=== PATIENT | female | born 1990 | race African-American/Black ===

== ENCOUNTER 2024-04-22 22:03 | Emergency (ER) | payer OTHER ==
[2024-04-22 22:14] VITALS: PULSE 71
--- NOTE | 2024-04-22 22:37 | ED ---
Fall HPI - General Chief Complaint: Fall Stated Complaint: Fall Time Seen by Provider: 04/22/24 22:08 Source: patient, RN notes reviewed Mode of arrival: EMS - History of Present Illness Initial Comments: Patient is a 33 year old female with a past medical history of alcohol abuse presenting to the ED for a fall. She states she was unable to see where her bed was, and was feeling around, and then she hit her head and knee. She states she did not lose conciousness. She states that she has a headache on the left where she hit her head and says it feels like "a heart beat". She states that she is also having double vision. She denies any numbness, tingling, weakness in extremities. She states she had fallen in the past when she was 18 years old. She denies any neck or back pain. Review of Systems ROS Statement: Those systems with pertinent positive or pertinent negative responses have been documented in the HPI. ROS Other: All systems not noted in ROS Statement are negative. Past Medical History Additional Past Medical History / Comment(s): Pancreatitis, Anxiety, Anemia History of Any Multi-Drug Resistant Organisms: None Reported Past Surgical History: No Surgical Hx Reported Past Psychological History: Anxiety Smoking Status: Never smoker Past Alcohol Use History: Abuse, Daily Past Drug Use History: None Reported General Exam Limitations: no limitations General appearance: appears intoxicated, obtunded Head exam: Absent: atraumatic (tenderness on palpation) Eye exam: Present: normal appearance, PERRL, EOMI ENT exam: Present: normal exam, normal oropharynx, mucous membranes moist Neck exam: Absent: normal inspection (unable to perform, in C collar) Respiratory exam: Present: normal lung sounds bilaterally. Absent: respiratory distress, wheezes, rales, rhonchi, stridor Cardiovascular Exam: Present: regular rate, normal rhythm, normal heart sounds. Absent: systolic murmur, diastolic murmur, rubs, gallop, clicks GI/Abdominal exam: Present: soft, normal bowel sounds. Absent: distended, tenderness, guarding, rebound, rigid Neurological exam: Present: oriented X3, CN II-XII intact Skin exam: Present: warm, dry, intact, normal color. Absent: rash Course Vital Signs 04/22/24 04/23/24 22:04 00:30 Temperature 98.4 F 98.2 F Pulse Rate 71 71 Respiratory 16 18 Rate Blood Pressure 143/96 138/79 O2 Sat by Pulse 99 97 Oximetry Medical Decision Making - Medical Decision Making Was pt. sent in by a medical professional or institution ([facility]add[facility], SALES AND SERVICE CONSULTANT, urgent care, hospital, or jail...) When possible be specific @ -[facility] Did you speak to anyone other than the patient for history (EMS, parent, family, police, friend...)? What history was obtained from this source @ -No Did you review nursing and triage notes (agree or disagree)? Why? @ -I reviewed and agree with nursing and triage notes Were old charts reviewed (outside hosp., previous admission, EMS record, old EKG , old radiological studies, urgent care reports/EKG's, jail records)? Report findings @ -No old charts were reviewed Differential Diagnosis (chest pain, altered mental status, abdominal pain women, abdominal pain men, vaginal bleeding, weakness, fever, dyspnea, syncope, headache, dizziness, GI bleed, back pain, seizure, CVA, palpatations, mental health, musculoskeletal)? @ -Closed head injury, scalp contusion, skull fracture, intracranial hemorrhage EKG interpreted by me (3pts min.). @ -None X-rays interpreted by me (1pt min.). @ -None done CT interpreted by me (1pt min.). @ -CT brain, C-spine showing no acute intracranial hemorrhage, mass effect or cervical fracture U/S interpreted by me (1pt. min.). @ -None done What testing was considered but not performed or refused? (CT, X-rays, U/S, labs)? Why? @ -None What meds were considered but not given or refused? Why? @ -None Did you discuss the management of the patient with other professionals (professionals i.e. [facility]add[facility], SALES AND SERVICE CONSULTANT, lab, RT, psych nurse, social economist, instructor traffic safety, teacher, loans officer, rehabilitation caseworker)? Give summary @ -No Was smoking cessation discussed for >3mins.? @ -No Was critical care preformed (if so, how long)? @ -No Were there social determinants of health that impacted care today? How? (Homelessness, low income, unemployed, alcoholism, drug addiction, transportation, low edu. Level, literacy, decrease access to med. care, group home, rehab)? @ -No Was there de-escalation of care discussed even if they declined (Discuss DNR or withdrawal of care, Hospice)? DNR status @ -No What co-morbidities impacted this encounter? (DM, HTN, Smoking, COPD, CAD, Cancer, CVA, ARF, Chemo, Hep., AIDS, mental health diagnosis, sleep apnea, morbid obesity)? @ -None Was patient admitted / discharged? Hospital course, mention meds given and route, prescriptions, significant lab abnormalities, going to OR and other pertinent info. @ -Discharge patient presented for [facility] patient had significant head injury, change in behavior, severe mechanism of injury CT was obtained patient discharged back to [facility] in stable condition Undiagnosed new problem with uncertain prognosis? @ -No Drug Therapy requiring intensive monitoring for toxicity (Heparin, Nitro, Insulin, Cardizem)? @ -No Were any procedures done? @ -No Diagnosis/symptom? @ -Close head injury Acute, or Chronic, or Acute on Chronic? @ -Acute Uncomplicated (without systemic symptoms) or Complicated (systemic symptoms)? @ -Uncomplicated Side effects of treatment? @ -No Exacerbation, Progression, or Severe Exacerbation? @ -No Poses a threat to life or bodily function? How? (Chest pain, USA, MA, pneumonia, PE, COPD, DKA, ARF, appy, cholecystitis, CVA, Diverticulitis, Homicidal, Suicidal, threat to staff... and all critical care pts) @ -No Disposition Clinical Impression: Fall, Closed head injury Disposition: HOME SELF-CARE Condition: Stable Instructions (If sedation given, give patient instructions): Head Injury (ED) Additional Instructions: Please return to the Emergency Department if symptoms worsen or any other concerns. Is patient prescribed a controlled substance at d/c from ED?: No Referrals: None,Stated [Primary Care Provider] - 1-2 days Time of Disposition: 00:15
--- NOTE | 2024-04-22 23:45 | CT ---
EXAM: CT Head Without Intravenous Contrast CLINICAL HISTORY: ITS.REASON CT Reason: fall TECHNIQUE: Axial computed tomography images of the head/brain without intravenous contrast. CTDI is 45.2 mGy and DLP is 1045 mGy-cm. This CT exam was performed using one or more of the following dose reduction techniques: automated exposure control, adjustment of the mA and/or kV according to patient size, and/or use of iterative reconstruction technique. COMPARISON: No relevant prior studies available. FINDINGS: Brain: Unremarkable. No hemorrhage. No significant white matter disease. No edema. Ventricles: Unremarkable. No ventriculomegaly. Bones/joints: Unremarkable. No acute fracture. Soft tissues: Unremarkable. Sinuses: Unremarkable as visualized. No acute sinusitis. Mastoid air cells: Unremarkable as visualized. No mastoid effusion. IMPRESSION: Normal head/brain CT. EXAM: CT Cervical Spine Without Intravenous Contrast CLINICAL HISTORY: ITS.REASON CT Reason: fall TECHNIQUE: Axial computed tomography images of the cervical spine without intravenous contrast. CTDI is 8.5 mGy and DLP is 249.1 mGy-cm. This CT exam was performed using one or more of the following dose reduction techniques: automated exposure control, adjustment of the mA and/or kV according to patient size, and/or use of iterative reconstruction technique. COMPARISON: No relevant prior studies available. FINDINGS: Vertebrae: Unremarkable. No acute fracture. Discs/spinal canal/neural foramina: No acute findings. No spinal canal stenosis. Soft tissues: Unremarkable. IMPRESSION: Normal cervical spine CT.
[2024-04-23] MEDS: IBUPROFEN 400 MG TAB PO STA (00:27)
[2024-04-23 00:32] VITALS: BP 138/79; RESP 18; TEMP 98.2
== END 2024-04-23 00:32 | disposition home or self-care (01) ==
LOC: EC 22:03
DX: S09.90XA Unspecified injury of head, initial encounter (principal); W01.0XXA Fall on same level from slipping, tripping and stumbling without subsequent striking against object, initial encounter
CPT/HCPCS: 70450; 72125; 99284

== ENCOUNTER 2024-04-23 06:27 | Observation (INO) | payer OTHER ==
--- NOTE | 2024-04-23 07:02 | ED ---
General Adult HPI - General Chief complaint: Psychiatric Symptoms Stated complaint: withdrawl Time Seen by Provider: 04/23/24 06:38 Source: patient, RN notes reviewed Mode of arrival: EMS Limitations: no limitations - History of Present Illness Initial comments: This is a 33-year-old female who presents to the emergency department for hallucinations. She checked into [facility] on 04/21/2024 for alcoholism. The patient states that her last drink was 2 to 3 weeks ago, however per [facility] documentation it was the day she checked in (04/21). She was evaluated here yesterday for a fall after hitting her head. She had imaging done that was negative and she was discharged back to [facility]. Per [facility], this evening she started to experience visual hallucinations. She saw a mouse peeking out of her trash can and a bug looking like either a butterfly or a praying mantis in her room. She told her roommate and they did not see anythi ng. They subsequently sent her here for further evaluation of hallucinations. Patient states that she is not experiencing any hallucinations, she just saw a bug that happened to not be there and does not think it is a big deal. Denies any history of hallucinations. She does state that she feels shaky whenever she reaches to grab for something. She also continues to complain of a headache and abdominal pain. States that her abdominal pain started a couple of hours ago and she states that it feels like prior bouts of pancreatitis. Denies any nausea or vomiting. Patient does appear to have soiled herself and has a strong odor of both urine and feces. - Related Data Home Medications Medication Instructions Recorded Confirmed Acetaminophen [Tylenol] 650 mg PO Q4H PRN 04/23/24 04/23/24 Albuterol Inhaler [Ventolin Hfa 1 puff INHALATION RT-QID PRN 04/23/24 04/23/24 Inhaler] Calcium Phos/D3/Magnesium/Zinc 1 tab PO TID PRN 04/23/24 04/23/24 [Iqjlace-Kks-Ldoh-Vitamin D3] Chlorpheniramine Maleate 4 mg PO Q4H PRN 04/23/24 04/23/24 [Chlor-Trimeton] Folic Acid 1 mg PO DAILY 04/23/24 04/23/24 Gabapentin [Neurontin] 100 mg PO HS 04/23/24 04/23/24 Ibuprofen [Motrin Ib] 600 mg PO Q6H PRN 04/23/24 04/23/24 LORazepam [Ativan] 1 - 2 mg PO Q4H PRN 04/23/24 04/23/24 Loperamide HCl [Imodium A-D] 4 mg PO QID PRN 04/23/24 04/23/24 Mag Hydrox/Aluminum Hyd/Simeth 30 ml PO Q4H PRN 04/23/24 04/23/24 [Mylanta Maximum Strength Liq] Multivitamins, Thera [Multivitamin 1 tab PO DAILY 04/23/24 04/23/24 (formulary)] Thiamine [Vitamin B-1] 100 mg PO DAILY 04/23/24 04/23/24 cloNIDine HCL [Catapres] 0.1 - 0.3 mg PO Q4H PRN 04/23/24 04/23/24 ondansetron HCL [Ondansetron HCl] 8 mg PO Q6H PRN 04/23/24 04/23/24 Allergies Allergy/AdvReac Type Severity Reaction Status Date / Time No Known Allergies Allergy Verified 04/23/24 10:25 Review of Systems ROS Statement: Those systems with pertinent positive or pertinent negative responses have been documented in the HPI. ROS Other: All systems not noted in ROS Statement are negative. Past Medical History Additional Past Medical History / Comment(s): Pancreatitis, Anxiety, Anemia History of Any Multi-Drug Resistant Organisms: None Reported Past Surgical History: No Surgical Hx Reported Past Psychological History: Anxiety Smoking Status: Never smoker Past Alcohol Use History: Abuse, Daily Past Drug Use History: None Reported General Exam Limitations: no limitations General appearance: alert, in no apparent distress Head exam: Present: atraumatic, normocephalic, normal inspection Eye exam: Present: normal appearance, PERRL, EOMI. Absent: scleral icterus, con junctival injection, periorbital swelling Respiratory exam: Present: normal lung sounds bilaterally. Absent: respiratory distress, wheezes, rales, rhonchi, stridor Cardiovascular Exam: Present: regular rate, normal rhythm, normal heart sounds. Absent: systolic murmur, diastolic murmur, rubs, gallop, clicks GI/Abdominal exam: Present: soft, normal bowel sounds. Absent: distended, tenderness, guarding, rebound, rigid Neurological exam: Present: alert, oriented X3, CN II-XII intact Psychiatric exam: Present: normal affect, normal mood Skin exam: Present: warm, dry, intact, normal color. Absent: rash Course Vital Signs 04/23/24 04/23/24 04/23/24 06:29 07:37 09:09 Temperature 98.4 F 98 F Pulse Rate 79 67 77 Respiratory 14 16 16 Rate Blood Pressure 135/101 131/89 110/82 O2 Sat by Pulse 98 100 98 Oximetry Medical Decision Making - Medical Decision Making This is a 33-year-old female who presents to the emergency department for hallucinations and altered mental status. Was pt. sent in by a medical professional or institution? @ -[facility] Did you speak to anyone other than the patient for history? @ -[facility] provided the majority of the history. Did you review nursing and triage notes? @ -Yes, and I agree, it is accurate with regards to the patient's symptoms. Were old charts reviewed? @ -No Differential Diagnosis? @ -Differential Altered Mental Status: Hypoglycemia, DKA, hypercapnia, ETOH, overdose, CO poisoning, trauma, myxedema coma, HTN encephalopathy, infection, encephalitis, psychosis, intercranial hemorrhage, hepatic encephalopathy, meningitis, CVA, this is not meant to be an all-inclusive list EKG interpreted by me (3pts min.)? @ -Not obtained X-rays interpreted by me (1pt min.)? @ -Not obtained CT interpreted by me (1pt min.)? @ -Not obtained U/S interpreted by me (1pt. min.)? @ -Not obtained What testing was considered but not performed? (CT, X-rays, U/S, labs)? Why? @ -CT scan of the brain and C-spine from yesterday revealing no acute process. What meds were considered but not given? Why? @ -None Did you discuss the management of the patient with other professionals? @ -Yes, Dr. Peguero, who accepts the patient for admission Did you reconcile home meds? @ -Yes Was smoking cessation discussed for >3mins.? @ -No Was critical care preformed (if so, how long)? @ -No Were there social determinants of health that impacted care today? How? (Homelessness, low income, unemployed, alcoholism, drug addiction, transportation, low edu. Level, literacy, decrease access to med. care, correction, rehab)? @ -Alcoholism, potentially contributing to withdrawals, which may be the reason for the hallucinations and visit today. Was there de-escalation of care discussed even if they declined? (Discuss DNR or withdrawal of care, Hospice)? @ -No What co-morbidities impacted this encounter? (DM, HTN, Smoking, COPD, CAD, Cancer, CVA, Hep., AIDS, mental health diagnosis, sleep apnea, morbid obesity)? @ -Alcohol abuse Was patient admitted / discharged? @ -Admitted. Lab work demonstrates elevated LFTs, likely related to ongoing alcohol abuse. UDS positive for benzodiazepines and barbiturates. Patient states that she has not had an alcoholic beverage in 2 to 3 weeks. We called [facility] and they advised that in their documentation her last drink was listed at 04/21 at 8 AM. They advised that they continue to get different stories from the patient as well. Patient had a CT scan of the brain and C-spine yesterday after a fall which revealed no acute findings. Patient appeared to be exhibiting visual hallucinations, which are most likely related to alcohol withdrawals and most recent drink was most likely a couple of days ago as [facility] advised. Initial CIWA was only 2, however on reevaluation had gone up to 14. Patient admitted to medicine for alcohol withdrawals and hallucinations. Case discussed with ED attending Dr. Denson. Undiagnosed new problem with uncertain prognosis? @ -None Drug Therapy requiring intensive monitoring for toxicity (Heparin, Nitro, Insulin, Cardizem)? @ -None Were any procedures done? @ -None Diagnosis/symptom? @ -Alcohol withdrawals, hallucinations due to alcohol withdrawals Acute, or Chronic, or Acute on Chronic? @ -Acute Uncomplicated (without systemic symptoms) or Complicated (systemic symptoms)? @ -Complicated Side effects of treatment? @ -None Exacerbation, Progression, or Severe Exacerbation] @ -Not applicable Poses a threat to life or bodily function? @ -Yes, this can lead to DTs which can be fatal. - Lab Data Result diagrams: 04/23/24 07:10 04/23/24 07:10 Lab Results 04/23/24 04/23/24 04/23/24 Range/Units 07:10 07:10 07:10 WBC 7.2 (3.8-10.6) k/uL RBC 3.81 (3.80-5.40) m/uL Hgb 13.0 (11.4-16.0) gm/dL Hct 38.5 (34.0-46.0) % MCV 101.1 H (80.0-100.0) fL MCH 34.2 (25.0-35.0) pg MCHC 33.8 (31.0-37.0) g/dL RDW 11.9 (11.5-15.5) % Plt Count 155 (150-450) k/uL MPV 8.5 Neutrophils % 74 % Lymphocytes % 22 % Monocytes % 2 % Eosinophils % 1 % Basophils % 1 % Neutrophils # 5.4 (1.3-7.7) k/uL Lymphocytes # 1.6 (1.0-4.8) k/uL Monocytes # 0.1 (0-1.0) k/uL Eosinophils # 0.1 (0-0.7) k/uL Basophils # 0.0 (0-0.2) k/uL Sodium 136 L (137-145) mmol/L Potassium 3.7 (3.5-5.1) mmol/L Chloride 95 L (98-107) mmol/L Carbon Dioxide 33 H (22-30) mmol/L Anion Gap 8 mmol/L BUN 8 (7-17) mg/dL Creatinine 0.51 L (0.52-1.04) mg/dL Est GFR (CKD-EPI)AfAm >90 (>60 ml/min/1.73 sqM) Est GFR (CKD-EPI)NonAf >90 (>60 ml/min/1.73 sqM) Glucose 125 H (74-99) mg/dL Calcium 9.9 (8.4-10.2) mg/dL Phosphorus (2.5-4.5) mg/dL Magnesium (1.6-2.3) mg/dL Total Bilirubin 1.3 (0.2-1.3) mg/dL AST 242 H (14-36) U/L ALT 65 H (4-34) U/L Alkaline Phosphatase 162 H (38-126) U/L Total Protein 7.6 (6.3-8.2) g/dL Albumin 4.5 (3.5-5.0) g/dL Amylase 66 (30-110) U/L Lipase 40 (23-300) U/L HCG, Qual Not Detected Urine Color Light Yellow Urine Appearance Clear (Clear) Urine pH 7.0 (5.0-8.0) Ur Specific [place] 1.008 (1.001-1.035) Urine Protein Negative (Negative) Urine Glucose (UA) 1+ H (Negative) Urine Ketones Negative (Negative) Urine Blood Negative (Negative) Urine Nitrite Negative (Negative) Urine Bilirubin Negative (Negative) Urine Urobilinogen <2.0 (<2.0) mg/dL Ur Leukocyte Esterase Negative (Negative) Urine Opiates Screen Not Detected (NotDetected) Ur Oxycodone Screen Not Detected (NotDetected) Urine Methadone Screen Not Detected (NotDetected) Ur Barbiturates Screen Detected H (NotDetected) U Tricyclic Antidepress Not Detected (NotDetected) Ur Phencyclidine Scrn Not Detected (NotDetected) Ur Amphetamines Screen Not Detected (NotDetected) U Methamphetamines Scrn Not Detected (NotDetected) U Benzodiazepines Scrn Detected H (NotDetected) Urine Cocaine Screen Not Detected (NotDetected) U Marijuana (THC) Screen Not Detected (NotDetected) Serum Alcohol <10 mg/dL 04/23/24 Range/Units 07:10 WBC (3.8-10.6) k/uL RBC (3.80-5.40) m/uL Hgb (11.4-16.0) gm/dL Hct (34.0-46.0) % MCV (80.0-100.0) fL MCH (25.0-35.0) pg MCHC (31.0-37.0) g/dL RDW (11.5-15.5) % Plt Count (150-450) k/uL MPV Neutrophils % % Lymphocytes % % Monocytes % % Eosinophils % % Basophils % % Neutrophils # (1.3-7.7) k/uL Lymphocytes # (1.0-4.8) k/uL Monocytes # (0-1.0) k/uL Eosinophils # (0-0.7) k/uL Basophils # (0-0.2) k/uL Sodium (137-145) mmol/L Potassium (3.5-5.1) mmol/L Chloride (98-107) mmol/L Carbon Dioxide (22-30) mmol/L Anion Gap mmol/L BUN (7-17) mg/dL Creatinine (0.52-1.04) mg/dL Est GFR (CKD-EPI)AfAm (>60 ml/min/1.73 sqM) Est GFR (CKD-EPI)NonAf (>60 ml/min/1.73 sqM) Glucose (74-99) mg/dL Calcium (8.4-10.2) mg/dL Phosphorus 2.0 L (2.5-4.5) mg/dL Magnesium 1.5 L (1.6-2.3) mg/dL Total Bilirubin (0.2-1.3) mg/dL AST (14-36) U/L ALT (4-34) U/L Alkaline Phosphatase (38-126) U/L Total Protein (6.3-8.2) g/dL Albumin (3.5-5.0) g/dL Amylase (30-110) U/L Lipase (23-300) U/L HCG, Qual Urine Color Urine Appearance (Clear) Urine pH (5.0-8.0) Ur Specific [place] (1.001-1.035) Urine Protein (Negative) Urine Glucose (UA) (Negative) Urine Ketones (Negative) Urine Blood (Negative) Urine Nitrite (Negative) Urine Bilirubin (Negative) Urine Urobilinogen (<2.0) mg/dL Ur Leukocyte Esterase (Negative) Urine Opiates Screen (NotDetected) Ur Oxycodone Screen (NotDetected) Urine Methadone Screen (NotDetected) Ur Barbiturates Screen (NotDetected) U Tricyclic Antidepress (NotDetected) Ur Phencyclidine Scrn (NotDetected) Ur Amphetamines Screen (NotDetected) U Methamphetamines Scrn (NotDetected) U Benzodiazepines Scrn (NotDetected) Urine Cocaine Screen (NotDetected) U Marijuana (THC) Screen (NotDetected) Serum Alcohol mg/dL Disposition Clinical Impression: Hallucinations due to alcohol, Alcohol withdrawal Disposition: ADMITTED IP TO THIS HOSP
[2024-04-23] MEDS: KETOROLAC 15 MG/ML 1 ML VIAL IVP STA (07:20)
[2024-04-23] MEDS: SODIUM CHLORIDE 0.9% 1,000 ML IV STA (07:20)
[2024-04-23] MEDS: ACETAMINOPHEN TAB 500 MG TAB PO STA (07:21)
[2024-04-23 07:30] LABS: Basophils % (A) 1 %; Eosinophils # (A) 0.1 k/uL (0-0.7); Eosinophils % (A) 1 %; HCT 38.5 % (34.0-46.0); Lymphocytes # (A) 1.6 k/uL (1.0-4.8); Lymphocytes % (A) 22 %; MCH 34.2 pg (25.0-35.0); MCHC 33.8 g/dL (31.0-37.0); MCV 101.1 fL (80.0-100.0); Mean Platelet Volume 8.5; Monocytes # (A) 0.1 k/uL (0-1.0); Monocytes % (A) 2 %; Neutrophils # (A) 5.4 k/uL (1.3-7.7); Neutrophils % (A) 74 %; Platelet Count 155 k/uL (150-450); RBC 3.81 m/uL (3.80-5.40); RDW 11.9 % (11.5-15.5); WBC 7.2 k/uL (3.8-10.6)
[2024-04-23 07:38] VITALS: RESP 16
[2024-04-23 07:45] LABS: ALT 65 U/L (4-34); AST 242 U/L (14-36); African American GFR (CKD) >90 (>60 ml/min/1.73 sqM); Albumin 4.5 g/dL (3.5-5.0); Alcohol <10 mg/dL; Alkaline Phosphatase 162 U/L (38-126); Amylase 66 U/L (30-110); Anion Gap 8 mmol/L; Blood Urea Nitrogen 8 mg/dL (7-17); Calcium 9.9 mg/dL (8.4-10.2); Carbon Dioxide 33 mmol/L (22-30); Chloride 95 mmol/L (98-107); Glucose 125 mg/dL (74-99); Lipase 40 U/L (23-300); Non-African American GFR(CKD) >90 (>60 ml/min/1.73 sqM); Potassium 3.7 mmol/L (3.5-5.1); Sodium 136 mmol/L (137-145); Total Bilirubin 1.3 mg/dL (0.2-1.3); Total Protein 7.6 g/dL (6.3-8.2)
[2024-04-23 07:46] LABS: Appearance,Urine Clear (Clear); Bilirubin,Urine Negative (Negative); Blood,Urine Negative (Negative); Color,Urine Light Yellow; Glucose,Urine (UA) 1+ (Negative); HCG,Qualitative Serum Not Detected; Ketones,Urine Negative (Negative); Leukocyte Esterase,Urine Negative (Negative); Nitrite,Urine Negative (Negative); Protein,Urine Negative (Negative); Specific Gravity,Urine 1.008 (1.001-1.035); Urobilinogen,Urine <2.0 mg/dL (<2.0)
[2024-04-23] MEDS ORDERED: LORazepam 1 MG TAB PO PRN (07:46)
[2024-04-23] MEDS ORDERED: LORazepam 2 MG/ML INJ IV PRN ×3 (07:46)
[2024-04-23] MEDS: THIAMINE 100 MG/ML 2 ML VIAL IM STA (07:58)
[2024-04-23 07:59] LABS: Amphetamine Screen,Urine Not Detected (NotDetected); Barbiturate Screen,Urine Detected (NotDetected); Benzodiazepines Screen,Urine Detected (NotDetected); Cocaine Screen,Urine Not Detected (NotDetected); Methadone Screen, Urine Not Detected (NotDetected); Opiate Screen,Urine Not Detected (NotDetected); Oxycodone Screen, Urine Not Detected (NotDetected); Phencyclidine Screen,Urine Not Detected (NotDetected); Tricyclic Antidepressant,Urine Not Detected (NotDetected); Urn Cannabinoid Scrn Not Detected (NotDetected)
[2024-04-23] MEDS: FOLIC ACID 1 MG TAB PO SCH (08:20)
[2024-04-23] MEDS: MULTIVITAMINS, THERA 1 EACH TAB PO SCH (08:20)
[2024-04-23 08:32] LABS: Magnesium 1.5 mg/dL (1.6-2.3)
[2024-04-23] MEDS ORDERED: IBUPROFEN 400 MG TAB PO PRN (08:57)
[2024-04-23] MEDS ORDERED: NALOXONE 0.4 MG/ML 1 ML VIAL IV PRN (08:57)
[2024-04-23] MEDS ORDERED: ONDANSETRON 4 MG/2 ML VIAL IVP PRN (08:57)
[2024-04-23] MEDS ORDERED: KETOROLAC 15 MG/ML 1 ML VIAL IVP PRN (08:57)
[2024-04-23] MEDS ORDERED: ACETAMINOPHEN TAB 325 MG TAB PO PRN ×2 (08:57→10:57)
[2024-04-23] MEDS: PANTOPRAZOLE 40 MG/10 ML VIAL IV SCH (09:08)
[2024-04-23] MEDS: LORazepam 2 MG/ML INJ IV PRN (10:26)
[2024-04-23] MEDS ORDERED: diphenhydrAMINE 25 MG CAP PO PRN (10:57)
[2024-04-23] MEDS ORDERED: ONDANSETRON 4 MG TAB PO PRN (10:57)
[2024-04-23] MEDS ORDERED: LOPERAMIDE 2 MG CAP PO PRN (10:57)
[2024-04-23] MEDS ORDERED: cloNIDine HCL 0.1 MG TAB PO PRN (10:57)
[2024-04-23] MEDS ORDERED: CALCIUM CARB-VIT D 500 MG-5 MCG TAB PO PRN (10:57)
[2024-04-23] MEDS ORDERED: ALBUTEROL NEBULIZED 2.5 MG/3 ML INHALATION PRN (10:57)
[2024-04-23] MEDS ORDERED: MAG HYDROX/AL HYDROX/SIMETH 30 ML CUP PO PRN (10:57)
--- NOTE | 2024-04-23 12:34 | P.HPIM ---
History of Present Illness 33-year-old female came to the hospital with hallucinations. Patient sent in from [place] as he was having hallucinations patient was seen in the ER couple days ago for Fall and hitting the head CT of the head was done at that ti me which was negative and was subsequently discharged to [place]. Patient has been close couple days ago although patient states she did not drink for 2 and half weeks patient is having withdrawals at this time and having visual hallucinations unable to provide much of the history to me patient just mumbles. Denies any abdominal pain nausea vomiting. Patient usually drinks a pint of hard liquor REVIEW OF SYSTEMS: All other systems are negative except those mentioned in the HPI PHYSICAL EXAMINATION: GENERAL: Unable to assess orientation patient just mumbles, not in any acute dis tress. Well developed, well nourished. HEENT: Pupils are round and equally reacting to light. EOMI. No scleral icterus. No conjunctival pallor. Normocephalic, atraumatic. No pharyngeal erythema. No t hyromegaly. CARDIOVASCULAR: S1 and S2 present. No murmurs, rubs, or gallops. PULMONARY: Chest is clear to auscultation, no wheezing or crackles. ABDOMEN: Soft, nontender, nondistended, normoactive bowel sounds. No palpable organomegaly. MUSCULOSKELETAL: No joint swelling or deformity. EXTREMITIES: No cyanosis, clubbing, or pedal edema. NEUROLOGICAL: Gross neurological examination did not reveal any focal deficits. Significant generalized weakness does not appear to have any focal weakness or tingling numbness SKIN: No rashes. Assessment and plan -Alcohol withdrawal: Patient will be on CIWA protocol with Ativan we will also add Librium scheduled thiamine multivitamin supplementation IV fluids -Acute alcoholic hepatitis -Hypomagnesemia secondary to chronic alcoholism -Peripheral neuropathy secondary to chronic alcoholism -Alcohol abuse social work will be consulted DVT prophylaxis: Lovenox GI prophylaxis Protonix Past Medical History Additional Past Medical History / Comment(s): Pancreatitis, Anxiety, Anemia History of Any Multi-Drug Resistant Organisms: None Reported Past Surgical History: No Surgical Hx Reported Past Psychological History: Anxiety Smoking Status: Never smoker Past Alcohol Use History: Abuse, Daily Past Drug Use History: None Reported Medications and Allergies Home Medications Medication Instructions Recorded Confirmed Type Acetaminophen [Tylenol] 650 mg PO Q4H PRN 04/23/24 04/23/24 History Albuterol Inhaler [Ventolin Hfa 1 puff INHALATION RT-QID PRN 04/23/24 04/23/24 History Inhaler] Calcium Phos/D3/Magnesium/Zinc 1 tab PO TID PRN 04/23/24 04/23/24 History [Xvuqqfs-Ewr-Piil-Vitamin D3] Chlorpheniramine Maleate 4 mg PO Q4H PRN 04/23/24 04/23/24 History [Chlor-Trimeton] Folic Acid 1 mg PO DAILY 04/23/24 04/23/24 History Gabapentin [Neurontin] 100 mg PO HS 04/23/24 04/23/24 History Ibuprofen [Motrin Ib] 600 mg PO Q6H PRN 04/23/24 04/23/24 History LORazepam [Ativan] 1 - 2 mg PO Q4H PRN 04/23/24 04/23/24 History Loperamide HCl [Imodium A-D] 4 mg PO QID PRN 04/23/24 04/23/24 History Mag Hydrox/Aluminum Hyd/Simeth 30 ml PO Q4H PRN 04/23/24 04/23/24 History [Mylanta Maximum Strength Liq] Multivitamins, Thera [Multivitamin 1 tab PO DAILY 04/23/24 04/23/24 History (formulary)] Thiamine [Vitamin B-1] 100 mg PO DAILY 04/23/24 04/23/24 History cloNIDine HCL [Catapres] 0.1 - 0.3 mg PO Q4H PRN 04/23/24 04/23/24 History ondansetron HCL [Ondansetron HCl] 8 mg PO Q6H PRN 04/23/24 04/23/24 History Allergies Allergy/AdvReac Type Severity Reaction Status Date / Time No Known Allergies Allergy Verified 04/23/24 10:25 Physical Exam Vitals: Vital Signs Temp Pulse Resp BP Pulse Ox 04/23/24 09:09 77 16 110/82 98 04/23/24 07:37 98 F 67 16 131/89 100 04/23/24 06:29 98.4 F 79 14 135/101 98 Intake and Output 04/22/24 04/23/24 04/23/24 22:59 06:59 14:59 Other: Weight 48.534 kg Results CBC & Chem 7: 04/23/24 07:10 04/23/24 07:10 Labs: Abnormal Lab Results - Last 24 Hours (Table) 04/23/24 04/23/24 04/23/24 Range/Units 07:10 07:10 07:10 MCV 101.1 H (80.0-100.0) fL Sodium 136 L (137-145) mmol/L Chloride 95 L (98-107) mmol/L Carbon Dioxide 33 H (22-30) mmol/L Creatinine 0.51 L (0.52-1.04) mg/dL Glucose 125 H (74-99) mg/dL Phosphorus (2.5-4.5) mg/dL Magnesium (1.6-2.3) mg/dL AST 242 H (14-36) U/L ALT 65 H (4-34) U/L Alkaline Phosphatase 162 H (38-126) U/L Urine Glucose (UA) 1+ H (Negative) Ur Barbiturates Screen Detected H (NotDetected) U Benzodiazepines Scrn Detected H (NotDetected) 04/23/24 Range/Units 07:10 MCV (80.0-100.0) fL Sodium (137-145) mmol/L Chloride (98-107) mmol/L Carbon Dioxide (22-30) mmol/L Creatinine (0.52-1.04) mg/dL Glucose (74-99) mg/dL Phosphorus 2.0 L (2.5-4.5) mg/dL Magnesium 1.5 L (1.6-2.3) mg/dL AST (14-36) U/L ALT (4-34) U/L Alkaline Phosphatase (38-126) U/L Urine Glucose (UA) (Negative) Ur Barbiturates Screen (NotDetected) U Benzodiazepines Scrn (NotDetected)
[2024-04-23] MEDS: SODIUM CHLORIDE 0.9% 1,000 ML IV SCH (15:13)
[2024-04-23] MEDS: MAGNESIUM SULFATE-D5W PMX 1 GM in DEXTROSE/WATER 1 100ML.BAG IVPB SCH (15:13)
[2024-04-23] MEDS: chlordiazePOXIDE 25 MG CAP PO SCH (16:35)
[2024-04-23] MEDS: GABAPENTIN 100 MG CAP PO SCH (20:46)
[2024-04-24] MEDS: ENOXAPARIN 40 MG/0.4 ML SYRINGE SQ SCH (08:25)
[2024-04-24] MEDS: FOLIC ACID 1 MG TAB PO SCH (08:26)
[2024-04-24] MEDS: MULTIVITAMINS, THERA 1 EACH TAB PO SCH (08:27)
[2024-04-24] MEDS: THIAMINE 100 MG TAB PO SCH (08:27)
[2024-04-24] MEDS ORDERED: THIAMINE 100 MG TAB PO SCH (09:00)
[2024-04-24 11:28] LABS: African American GFR (CKD) >90 (>60 ml/min/1.73 sqM); Anion Gap 7 mmol/L; Blood Urea Nitrogen 6 mg/dL (7-17); Calcium 9.2 mg/dL (8.4-10.2); Carbon Dioxide 28 mmol/L (22-30); Chloride 102 mmol/L (98-107); Glucose 104 mg/dL (74-99); Magnesium 1.6 mg/dL (1.6-2.3); Non-African American GFR(CKD) >90 (>60 ml/min/1.73 sqM); Potassium 4.1 mmol/L (3.5-5.1); Sodium 137 mmol/L (137-145)
[2024-04-24] MEDS: IBUPROFEN 600 MG TAB PO PRN (12:18)
[2024-04-24 12:40] LABS: ALT 49 U/L (4-34); AST 162 U/L (14-36); Alkaline Phosphatase 153 U/L (38-126)
[2024-04-24 13:11] VITALS: BMI 17.2
[2024-04-24] MEDS ORDERED: Magnesium Replacement Protocol 1 EACH MISC MISCELLANE PRN (14:27)
--- NOTE | 2024-04-24 14:30 | P.PN ---
Subjective Progress Note Date: 04/24/24 33-year-old female came to the hospital with hallucinations. Patient sent in from [place] as he was having hallucinations patient was seen in the ER couple days ago for Fall and hitting the head CT of the head was done at that time which was negative and was subsequently discharged to [place]. Patient has been close couple days ago although patient states she did not drink for 2 and half weeks patient is having withdrawals at this time and having visual hallucinations unable to provide much of the history to me patient just mumbles. Denies any abdominal pain nausea vomiting. Patient usually drinks a pint of hard liquor 04/24/2024 Patient is evaluated in follow-up of medical floor. She continues to report significant epigastric discomfort describes as a burning-like sensation. Will increase the Protonix to IV twice a day and patient has MiraLAX as needed. Amylase and lipase are normal there is no concern for pancreatitis at this time this is likely an alcoholic gastritis and this was discussed with the patient. LFTs were repeated today and are slightly improved. Review of Systems Constitutional: Denied any fatigue denied any fever. Cardio vascular: denied any chest pain, palpitations Gastrointestinal: denied any nausea, vomiting, diarrhea Pulmonary: Denied any shortness of breath cough Neurologic denied any new focal deficits All inpatient medications were reviewed and appropriate changes in these medications as dictated in the interval history and assessment and plan. PHYSICAL EXAMINATION: GENERAL: Unable to assess orientation patient just mumbles, not in any acute distress. Well developed, well nourished. HEENT: Pupils are round and equally reacting to light. EOMI. No scleral icterus. No conjunctival pallor. Normocephalic, atraumatic. No pharyngeal erythema. No thyromegaly. CARDIOVASCULAR: S1 and S2 present. No murmurs, rubs, or gallops. PULMONARY: Chest is clear to auscultation, no wheezing or crackles. ABDOMEN: Soft, epigastric tenderness, nondistended, normoactive bowel sounds. No palpable organomegaly. MUSCULOSKELETAL: No joint swelling or deformity. EXTREMITIES: No cyanosis, clubbing, or pedal edema. NEUROLOGICAL: Gross neurological examination did not reveal any focal deficits. Significant generalized weakness does not appear to have any focal weakness or tingling numbness SKIN: No rashes. Assessment and plan -Alcohol withdrawal: Patient will be on CIWA protocol with Ativan we will also add Librium scheduled thiamine multivitamin supplementation IV fluids -Acute alcoholic hepatitis, Trend LFTs -Acute alcoholic gastritis continue IV protonix BID and PRN maalox -Hypomagnesemia secondary to chronic alcoholism, replace and repeat blood work in the AM. -Peripheral neuropathy secondary to chronic alcoholism -Alcohol abuse social work will be consulted DVT prophylaxis: Lovenox GI prophylaxis Protonix Full Code Patient will be monitored overnight. Continue supportive care. Will plan for DC return to [facility] tomorrow. The impression and plan of care has been dictated by Norah Navas, Nurse Practitioner as directed. Dr. Darcy MD I have performed a history and physical examination and medical decision making of this patient, discussed the same with the dictator, and agree with the dictators assessment and plan as written, documented as a scribe. Based on total visit time, I have performed more than 50% of this visit. Objective - Vital Signs Vital signs: Vital Signs Temp 98.4 F 04/24/24 07:00 Pulse 108 H 04/24/24 07:00 Resp 16 04/24/24 07:00 BP 117/78 04/24/24 07:00 Pulse Ox 96 04/24/24 07:00 FiO2 Intake & Output 04/23/24 04/24/24 04/24/24 18:59 06:59 18:59 Intake Total 236 Balance 236 Weight 48.534 kg Intake: Oral 236 Other: Voiding Method Toilet Toilet # Voids 2 # Bowel Movements 1 - Labs CBC & Chem 7: 04/23/24 07:10 04/24/24 10:43 Labs: Abnormal Lab Results - Last 24 Hours (Table) 04/24/24 Range/Units 10:43 BUN 6 L (7-17) mg/dL Glucose 104 H (74-99) mg/dL Assessment and Plan Time with Patient: Less than 30
[2024-04-24] MEDS: MAGNESIUM SULFATE-D5W PMX 1 GM in DEXTROSE/WATER 1 100ML.BAG IVPB SCH (15:00)
[2024-04-24] MEDS: PANTOPRAZOLE 40 MG/10 ML VIAL IVP SCH (20:05)
[2024-04-25 08:42] LABS: ALT 45 U/L (4-34); AST 90 U/L (14-36); African American GFR (CKD) >90 (>60 ml/min/1.73 sqM); Albumin 3.5 g/dL (3.5-5.0); Albumin/Globulin Ratio 1.3; Alkaline Phosphatase 143 U/L (38-126); Anion Gap 3 mmol/L; Blood Urea Nitrogen 10 mg/dL (7-17); Calcium 9.3 mg/dL (8.4-10.2); Carbon Dioxide 28 mmol/L (22-30); Chloride 104 mmol/L (98-107); Globulin 2.8 g/dL; Glucose 107 mg/dL (74-99); Magnesium 1.6 mg/dL (1.6-2.3); Non-African American GFR(CKD) >90 (>60 ml/min/1.73 sqM); Potassium 4.5 mmol/L (3.5-5.1); Sodium 135 mmol/L (137-145); Total Bilirubin 0.5 mg/dL (0.2-1.3); Total Protein 6.3 g/dL (6.3-8.2)
[2024-04-25 09:12] VITALS: BP 134/95; PULSE 88; TEMP 98.7
[2024-04-25 11:00] LABS: HCT 37.9 % (37.2-46.3); HGB 12.2 g/dL (12.0-15.0); MCH 33.4 pg (27.0-32.0); MCHC 32.2 g/dL (32.0-37.0); MCV 103.8 FL (80.0-97.0); NRBC Per 100 WBC 0 X 10*3/uL (0.00-0.01); Platelet Count 101 X 10*3/uL (140-440); RBC 3.65 X 10*6/uL (4.10-5.20); RDW 12.2 % (11.5-14.5); WBC 7.97 X 10*3/uL (4.50-10.00)
--- NOTE | 2024-04-27 22:56 | P.DS ---
Providers Date of admission: 04/23/24 08:48 Expected date of discharge: 04/25/24 Attending physician: Lucia Winslow Primary care physician: Stated None Hospital Course: Final diagnosis -Alcohol withdrawal with acute alcohol withdrawal delirium -Acute alcoholic hepatitis, LFTs trending down -Acute alcoholic gastritis -Hypomagnesemia secondary to chronic alcoholism, improved after replacement -Peripheral neuropathy secondary to chronic alcoholism -Alcohol abuse was at [facility] and will be returning DVT prophylaxis: Lovenox GI prophylaxis Protonix Full Code Discharge disposition Patient is being discharged in a stable condition with guarded prognosis to [facility] inpatient alcohol rehab. Patient will follow-up with her primary care provider in [place] in the outpatient setting upon discharge. Patient is to continue with Librium taper as scheduled. Total time taken is greater than 35 minutes. Hospital course This is a 33-year-old female who was recently admitted with alcohol withdrawal with acute alcohol withdrawal delirium and being maintained on CIWA protocol. Patient reported to having hallucinations while at [facility] and sent here for further evaluation. Patient in acute alcohol withdrawal maintained on CIWA started on Librium taper and will be continued on Librium on discharge. Patient to return to inpatient alcohol rehab although did report to social work she did not want to return there. Patient to follow-up with primary care provider on discharge. Patient's mentation is improved and alert and oriented x 3. Currently no reports of chest pain, shortness of breath, or palpitations. Jo ent is afebrile. No reports of nausea or vomiting and patient is tolerating diet. Patient will be discharged today. Guarded prognosis and high risk for readmissions given continued ongoing alcohol abuse. Physical exam: Gen: This is a 33-year-old female who is awake, alert oriented x 3, well- developed, thin built HEENT: Head is atraumatic, normocephalic. Pupils equal, round. Sclerae is anicte lor. NECK: Supple. No JVD. No lymphadenopathy. No thyromegaly. LUNGS: Clear to auscultation. No wheezes or rhonchi. No intercostal retractions. HEART: Regular rate and rhythm. No murmur. ABDOMEN: Soft. Thin. Bowel sounds are present. No masses. No tenderness. EXTREMITIES: No pedal edema. No calf tenderness. NEUROLOGICAL: Patient is awake, alert and oriented x3. Cranial nerves 2 through 12 are grossly intact. Please refer to medication reconciliation sheet for a list of medications. The impression and plan of care has been dictated by Carley Cassidy, Nurse Practitioner as directed. Dr. Darcy MD I have performed a history and examination and MDM of this patient, discussed the same with the dictator, and agree with the dictator's assessment and plan as written ,documented as a scribe. Based on total visit time, I have performed more than 50% of the visit. Patient Condition at Discharge: Fair Plan - Discharge Summary Discharge Rx Participant: No New Discharge Prescriptions: New chlordiazePOXIDE HCl [Librium] 25 mg PO TID #6 cap Pantoprazole [Protonix] 40 mg PO DAILY #30 tab Continue Acetaminophen [Tylenol] 650 mg PO Q4H PRN PRN Reason: Pain Thiamine [Vitamin B-1] 100 mg PO DAILY Mag Hydrox/Aluminum Hyd/Simeth [Mylanta Maximum Strength Liq] 30 ml PO Q4H PRN PRN Reason: Gi Upset Loperamide HCl [Imodium A-D] 4 mg PO QID PRN PRN Reason: Loose Stool LORazepam [Ativan] 1 - 2 mg PO Q4H PRN PRN Reason: WITHDRAWAL Albuterol Inhaler [Ventolin Hfa Inhaler] 1 puff INHALATION RT-QID PRN PRN Reason: Shortness Of Breath ondansetron HCL [Zofran] 8 mg PO Q6H PRN PRN Reason: Nausea And Vomiting Multivitamins, Thera [Multivitamin (formulary)] 1 tab PO DAILY cloNIDine HCL [Catapres] 0.1 - 0.3 mg PO Q4H PRN PRN Reason: BP <160/100 Ibuprofen [Motrin Ib] 600 mg PO Q6H PRN PRN Reason: Pain Chlorpheniramine Maleate [Chlor-Trimeton] 4 mg PO Q4H PRN PRN Reason: Allergy Symptoms Calcium Phos/D3/Magnesium/Zinc [Rpbyuqj-Rui-Rwyb-Vitamin D3] 1 tab PO TID PRN PRN Reason: Supplement Gabapentin [Neurontin] 100 mg PO HS Folic Acid 1 mg PO DAILY Discharge Medication List Acetaminophen [Tylenol] 650 mg PO Q4H PRN 04/23/24 [History] Albuterol Inhaler [Ventolin Hfa Inhaler] 1 puff INHALATION RT-QID PRN 04/23/24 [History] Calcium Phos/D3/Magnesium/Zinc [Atedlev-Wzp-Ksal-Vitamin D3] 1 tab PO TID PRN 04/23/24 [History] Chlorpheniramine Maleate [Chlor-Trimeton] 4 mg PO Q4H PRN 04/23/24 [History] Folic Acid 1 mg PO DAILY 04/23/24 [History] Gabapentin [Neurontin] 100 mg PO HS 04/23/24 [History] Ibuprofen [Motrin Ib] 600 mg PO Q6H PRN 04/23/24 [History] LORazepam [Ativan] 1 - 2 mg PO Q4H PRN 04/23/24 [History] Loperamide HCl [Imodium A-D] 4 mg PO QID PRN 04/23/24 [History] Mag Hydrox/Aluminum Hyd/Simeth [Mylanta Maximum Strength Liq] 30 ml PO Q4H PRN 04/23/24 [History] Multivitamins, Thera [Multivitamin (formulary)] 1 tab PO DAILY 04/23/24 [History] Thiamine [Vitamin B-1] 100 mg PO DAILY 04/23/24 [History] cloNIDine HCL [Catapres] 0.1 - 0.3 mg PO Q4H PRN 04/23/24 [History] ondansetron HCL [Zofran] 8 mg PO Q6H PRN 04/23/24 [History] Pantoprazole [Protonix] 40 mg PO DAILY #30 tab 04/25/24 [Rx] chlordiazePOXIDE HCl [Librium] 25 mg PO TID #6 cap 04/25/24 [Rx] Follow up Appointment(s)/Referral(s): None,Stated [Primary Care Provider] - 1-2 days Activity/Diet/Wound Care/Special Instructions: Activity as tolerated Continue with Librium taper on discharge and as needed Ativan if going to [facility] Strongly recommend inpatient alcohol rehab to complete the admission Follow-up with primary care provider on discharge Refrain from all alcohol intake and exposure Discharge/Stand Alone Forms: AA Meetings [address] - [facility], AA Meetings [facility], [facility], Who Do I Call?, Community Resources, Outpatient Counseling, Inp Substance Abuse Facilities, Area PCPs Discharge Disposition: OTHER INSTITUTION NOT DEFINED
== END 2024-04-25 15:50 | disposition other institution (70) ==
LOC: EC 06:27 → 6NMEDSUR 08:48
PROVIDERS: ADMIT Hospitalist; ATTEND Hospitalist
DX: F10.231 Alcohol dependence with withdrawal delirium (principal); F10.251 Alcohol dependence with alcohol-induced psychotic disorder with hallucinations; K29.20 Alcoholic gastritis without bleeding; K70.10 Alcoholic hepatitis without ascites; E83.42 Hypomagnesemia; G62.1 Alcoholic polyneuropathy; Z79.899 Other long term (current) drug therapy; Z91.81 History of falling; Z87.19 Personal history of other diseases of the digestive system
CPT/HCPCS: 96376 ×2; 96361 ×4; 96366 ×3; 96372 ×2; 96365; 96375; 99285; 36415; 80053 ×2; 80048; 82150; 83690; 83735 ×3; 84075; 84100; 84450; 84460; 85025; 85027; 81003; 84703; 80306; G0378 ×3; G0480; J2060; J3411; J1650; J3475 ×2; J1885; J2470 ×3; 80320